=== PATIENT | female | born 1965 | race African-American/Black ===

== ENCOUNTER 2016-12-01 13:24 | Emergency (ER) | payer OTHER ==
[~2016-12-01] VITALS: Ht 170.2 cm; Wt 72.6 kg
[2016-12-01] MEDS ORDERED: NORVASC10 MG PO (13:26)
[2016-12-01 14:55] LABS: HEMATOCRIT 47.4 % (37.0-47.0); HEMOGLOBIN 15.8 gm/dL (12.0-15.0); MCHC 33.3 g/dL (28.0-37.0); MCV 84.1 fL (80.0-100.0); PLATELET COUNT 375 thou/uL (150-400); RBC 5.63 mil/uL (4.20-5.00); RDW 14.8 % (10.5-14.5); WBC 12.2 thou/uL (4.0-11.0)
[2016-12-01 14:56] LABS: MANUAL DIFF YES
[2016-12-01 15:18] LABS: ABSOLUTE NEUTROPHILS 11.1 thou/uL (1.4-8.2); CALCIUM 8.7 mg/dL (8.5-10.1); CREATININE 0.7 mg/dL (0.6-1.0); POTASSIUM 3.5 mmol/L (3.5-5.1); TOTAL CELL COUNT 100
[2016-12-01 15:22] LABS: ALBUMIN 4.4 g/dL (3.4-5.0); TOTAL BILIRUBIN 1.6 mg/dL (<0.1-1.0); TOTAL PROTEIN 8.5 g/dL (6.4-8.2)
[2016-12-01] MEDS ORDERED: ZOFRAN ODT8 MG PO (16:26)
[2016-12-01 17:06] LABS: URINE BILIRUBIN NEGATIVE (Negative); URINE BLOOD NEGATIVE (Negative); URINE COLOR YELLOW; URINE GLUCOSE-RANDOM* NEGATIVE (Negative); URINE KETONES 1+ (Negative); URINE LEUKOCYTES-REFLEX TRACE (Negative); URINE PROTEIN (DIPSTICK) NEGATIVE (Negative); URINE UROBILINOGEN 0.2 E.U./dl (0.2-1.0)
[2016-12-01 17:10] LABS: CASTS None Seen /LPF (None Seen); CRYSTALS None Seen /LPF (None Seen); SQUAMOUS 0-3 Few /LPF (0-3); URINE RBC None Seen /HPF (0-2); URINE WBC-REFLEX 0-5 Rare /HPF (0-5)
[2016-12-01 17:37] VITALS: BP 150/89
== END 2016-12-01 17:48 | disposition home or self-care (01) ==
LOC: ER 13:24
PROVIDERS: Emergency Medicine
DX: R11.2 Nausea with vomiting, unspecified (principal); R19.7 Diarrhea, unspecified; R10.9 Unspecified abdominal pain; I10 Essential (primary) hypertension; Z88.8 Allergy status to other drugs, medicaments and biological substances; Z88.2 Allergy status to sulfonamides